=== PATIENT | male | born 1940 | race Caucasian/White ===

== ENCOUNTER 2018-10-15 10:53 | Emergency (ER) | payer MEDICARE, BC ==
[2018-10-15 12:55] VITALS: BP 152/65
--- NOTE | 2018-10-15 13:27 | UC ---
Ear Complaint HPI - HPI Summary HPI Summary: Pt c/o gradual onset of bilateral ear fullness and loss of hearing - History of Current Complaint Chief Complaint: UCEar Stated Complaint: RIGHT EAR CONCERN Time Seen by Provider: 10/15/18 12:54 Hx Obtained From: Patient Onset/Duration: Gradual Onset, Lasting Days, Still Present Severity Initially: Mild Severity Currently: Mild Pain Intensity: 2 Associated Signs/Symptoms: Positive: Hearing Loss - Allergies/Home Medications Allergies/Adverse Reactions: Allergies Allergy/AdvReac Type Severity Reaction Status Date / Time house dust mite Allergy Congestion Verified 10/15/18 12:45 Home Medications: Home Medications Atenolol TAB* [Tenormin TAB* 50 MG] 50 mg PO DAILY 10/15/18 [History Confirmed 10/15/18] Atorvastatin* [Lipitor*] 10 mg PO QPM 10/15/18 [History Confirmed 10/15/18] Citalopram TAB* [CeleXA TAB*] 10 mg PO DAILY 10/15/18 [History Confirmed ] amLODIPine TAB* [Norvasc 5 mg TAB*] 5 mg PO DAILY 10/15/18 [History Confirmed ] PMH/Surg Hx/FS Hx/Imm Hx Previously Healthy: Yes - Surgical History Surgical History: Yes Surgery Procedure, Year, and Place: [facility] prostate 2009 - Family History Known Family History: Positive: Cardiac Disease - Social History Occupation: Retired Lives: Alone Alcohol Use: Daily Alcohol Amount: 1/2 glass wine Substance Use Type: None Smoking Status (MU): Light Every Day Tobacco Smoker Have You Smoked in the Last Year: Yes Review of Systems All Other Systems Reviewed And Are Negative: Yes Constitutional: Positive: Negative Skin: Positive: Negative Eyes: Positive: Negative ENT: Positive: Ear Ache Respiratory: Positive: Negative Cardiovascular: Positive: Negative Gastrointestinal: Positive: Negative Genitourinary: Positive: Negative Motor: Positive: Negative Neurovascular: Positive: Negative Musculoskeletal: Positive: Negative Neurological: Positive: Negative Psychological: Positive: Negative Is Patient Immunocompromised?: No Physical Exam Triage Information Reviewed: Yes Appearance: Well-Appearing Vital Signs: Initial Vital Signs Temp 98.2 F 10/15/18 12:48 Pulse 54 10/15/18 12:48 Resp 20 10/15/18 12:48 BP 152/65 10/15/18 12:48 Pulse Ox 100 10/15/18 12:48 Vital Signs Reviewed: Yes Eye Exam: Normal ENT Exam: Other - cerumen bilateral ears Dental Exam: Normal Neck exam: Normal Respiratory Exam: Normal Cardiovascular Exam: Normal Musculoskeletal Exam: Normal Neurological Exam: Normal Psychological Exam: Normal Skin Exam: Normal Ear Complaint Course/Dx - Differential Dx/Diagnosis Differential Diagnosis/HQI/PQRI: Cerumen Impaction Provider Diagnosis: Excessive cerumen in both ear canals Discharge - Sign-Out/Discharge Documenting (check all that apply): Patient Departure All imaging exams completed and their final reports reviewed: No Studies - Discharge Plan Condition: Stable Disposition: HOME Patient Education Materials: Cerumen Impaction (ED) Referrals: Percy SMALLWOOD,Mono Pacheco [Primary Care Provider] - If Needed - Billing Disposition and Condition Condition: STABLE Disposition: Home - Attestation Statements Provider Attestation: I was available for consult. This patient was seen by the [facility]. The patient was not presented to, seen by, or examined by me. EK
== END 2018-10-15 13:24 | disposition home or self-care (01) ==
LOC: UCCORT 10:53
DX: H93.8X3 Other specified disorders of ear, bilateral (principal); H91.93 Unspecified hearing loss, bilateral; F17.290 Nicotine dependence, other tobacco product, uncomplicated; Z91.09 Other allergy status, other than to drugs and biological substances
CPT/HCPCS: 99203; G0463

== ENCOUNTER 2019-01-10 14:19 | Emergency (ER) | payer MEDICARE, BC ==
[2019-01-10 14:35] VITALS: BP 133/61
[2019-01-10] MEDS ORDERED: Cephalexin CAP* 500 MG PO ONE (15:05)
--- NOTE | 2019-01-10 15:31 | ED ---
Upper Extremity Pain - HPI Summary HPI Summary: 78 yr old male with the complaint of left pinky finger injury. An hour prior to arrival he was cutting cedar shingles and he had the board kick back and his his little left finger. he has a laceration with separation of the nail bed. He has had a tetanus shot last month by his PMD. He denies other complaints. Denies numbness. - History of Current Complaint Chief Complaint: ZOHAIBkin Stated Complaint: LEFT PINKY INJURY/LACERATION Time Seen by Provider: 01/10/19 14:59 - Allergies/Home Medications Allergies/Adverse Reactions: Allergies Allergy/AdvReac Type Severity Reaction Status Date / Time house dust mite Allergy Congestion Verified 01/10/19 14:35 Home Medications: Home Medications Cholecalciferol TAB* [Vitamin D TAB*] 800 unit PO DAILY 01/10/19 [History Confirmed 01/10/19] PMH/Surg Hx/FS Hx/Imm Hx Endocrine/Hematology History: Denies: Hx Diabetes, Hx Thyroid Disease Cardiovascular History: Reports: Hx Hypertension Respiratory History: Denies: Hx Asthma, Hx Chronic Obstructive Pulmonary Disease (COPD) GI History: Denies: Hx Ulcer - Surgical History Surgery Procedure, Year, and Place: [place] [id number] Infectious Disease History: No Infectious Disease History: Reports: Traveled Outside the [place] in Last 30 Days - [place] Denies: Hx Hepatitis, Hx Human Immunodeficiency Virus (HIV) - Family History Known Family History: Positive: Cardiac Disease - Social History Occupation: Retired Alcohol Use: Daily Alcohol Amount: 1/2 glass wine Substance Use Type: Reports: None Smoking Status (MU): Light Every Day Tobacco Smoker Have You Smoked in the Last Year: Yes Review of Systems Constitutional: Negative Positive: Other - left little finger nail bed laceration and finger lace All Other Systems Reviewed And Are Negative: Yes Physical Exam Triage Information Reviewed: Yes Vital Signs On Initial Exam: Initial Vitals Temp Pulse Resp BP Pulse Ox 98.2 F 59 18 133/61 100 01/10/19 14:29 01/10/19 14:29 01/10/19 14:29 01/10/19 14:29 01/10/19 14:29 Vital Signs Reviewed: Yes Appearance: Positive: Well-Appearing, No Pain Distress Skin: Positive: Other - left little finger 2 cm laceration that involved the nail bed as well. Eyes: Positive: EOMI Neck: Positive: Nontender Respiratory/Lung Sounds: Positive: Clear to Auscultation, Breath Sounds Present Cardiovascular: Positive: RRR Abdomen Description: Negative: Distended Musculoskeletal: Positive: Strength/ROM Intact Neurological: Positive: Sensory/Motor Intact, Alert, Oriented to Person Place, Time, CN Intact II-III Psychiatric: Positive: Normal Diagnostics - Vital Signs Vital Signs Temp Pulse Resp BP Pulse Ox 01/10/19 14:29 98.2 F 59 18 133/61 100 - Laboratory Lab Statement: Any lab studies that have been ordered have been reviewed, and results considered in the medical decision making process. - Radiology left little finger Radiology Interpretation Completed By: Radiologist - NAD Course/Dx - Course Course Of Treatment: 78 yr old male with left little finger injury. He has a 2 cm laceration to the left nail bed, finger tip. Wound irrigated by nursing staff and wet to dry dressing applied. He is going to drive to [facility] to see him. - Diagnoses Provider Diagnoses: Laceration of left little finger, Nail bed injury Discharge - Sign-Out/Discharge Documenting (check all that apply): Patient Departure All imaging exams completed and their final reports reviewed: Yes - Discharge Plan Condition: Good Disposition: HOME-RECOMMEND TO ED Patient Education Materials: Laceration (DC) Referrals: Percy SMALLWOOD,Mono Pacheco [Primary Care Provider] - Additional Instructions: You need to go to [facility] for hand surgery to see you for nail bed injury repair.Go now and do not delay. You are being sent with your xray. - Billing Disposition and Condition Condition: GOOD Disposition: Home-Recommend to ED
== END 2019-01-10 15:40 | disposition home health service (06) ==
LOC: UCCORT 14:19
DX: S61.327A Laceration with foreign body of left little finger with damage to nail, initial encounter (principal); W22.8XXA Striking against or struck by other objects, initial encounter; Y93.89 Activity, other specified; Y92.9 Unspecified place or not applicable; I10 Essential (primary) hypertension; F17.210 Nicotine dependence, cigarettes, uncomplicated
CPT/HCPCS: 73140; 99213; A9270-GY; G0463

== ENCOUNTER 2019-01-13 10:22 | Emergency (ER) | payer MEDICARE, BC ==
[2019-01-13 10:44] VITALS: BP 141/60
--- NOTE | 2019-01-13 11:15 | UC ---
Upper Extremity HPI - HPI Summary HPI Summary: 78 y/o male s/p trauma to L 5th finger DIP, seen at [facility] and has follow up wednesday, presents today for re-chekc. + tetanus, on abx. denies redness, drainage. minimal pain. no complaints. - History of Current Complaint Chief Complaint: UCSkin Stated Complaint: LEFT PINKY RECHECK Time Seen by Provider: 01/13/19 10:49 Hx Obtained From: Patient ?: No Onset/Duration: Sudden Onset, Lasting Days Severity Initially: Mild Severity Currently: None Pain Intensity: 0 Pain Scale Used: 0-10 Numeric Location Of Pain: Is Discrete @ - left 5th figner DIP Character: Aching - Allergies/Home Medications Allergies/Adverse Reactions: Allergies Allergy/AdvReac Type Severity Reaction Status Date / Time No Known Allergies Allergy Verified 01/13/19 10:44 Home Medications: Home Medications cephALEXin [Keflex 750 MG] 750 mg PO BID 01/13/19 [History Confirmed 01/13/19] PMH/Surg Hx/FS Hx/Imm Hx Previously Healthy: No - Surgical History Surgical History: Yes Surgery Procedure, Year, and Place: [facility] prostate 2008 - Family History Known Family History: Positive: Cardiac Disease - Social History Alcohol Use: Daily Alcohol Amount: 1/2 glass wine Substance Use Type: None Smoking Status (MU): Heavy Every Day Tobacco Smoker Amount Used/How Often: 1/2 ppd Length of Time of Smoking/Using Tobacco: since age 17 Have You Smoked in the Last Year: Yes - Immunization History Most Recent Tetanus Shot: 11/2018 Review of Systems All Other Systems Reviewed And Are Negative: Yes Constitutional: Positive: Negative Musculoskeletal: Positive: Arthralgia, Decreased ROM, Edema, Myalgia Is Patient Immunocompromised?: No Physical Exam Triage Information Reviewed: Yes Appearance: Well-Appearing, No Pain Distress, Well-Nourished Vital Signs: Initial Vital Signs Temp 97.1 F 01/13/19 10:35 Pulse 58 01/13/19 10:35 Resp 14 01/13/19 10:35 BP 141/60 01/13/19 10:35 Pulse Ox 100 01/13/19 10:35 Vital Signs Reviewed: Yes Eyes: Positive: Conjunctiva Clear Musculoskeletal: Positive: Strength Intact, ROM Intact, Edema @ - moderate edema DIP 5th finger Neurological Exam: Normal Psychological Exam: Normal Upper Extremity Course/Dx - Course Course Of Treatment: s/p laceration repair L 5th figner, healing well, no changes to treatment course - Differential Dx/Diagnosis Provider Diagnosis: Laceration of finger Discharge - Sign-Out/Discharge Documenting (check all that apply): Patient Departure All imaging exams completed and their final reports reviewed: No Studies - Discharge Plan Condition: Good Disposition: HOME Patient Education Materials: Care For Your Stitches (ED), Finger Laceration (ED ) Referrals: Percy SMALLWOOD,Mono Pacheco [Primary Care Provider] - Additional Instructions: - Continue follow up with orthopedics - Return to ER or urgent care with increased redness or drainage. - Splints as needed for comfort - Billing Disposition and Condition Condition: GOOD Disposition: Home
== END 2019-01-13 11:12 | disposition home or self-care (01) ==
LOC: UCCORT 10:22
DX: J02.8 Acute pharyngitis due to other specified organisms (principal)
CPT/HCPCS: 99211; G0463